=== PATIENT | male | born 2000 | race Caucasian/White ===

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

== ENCOUNTER 2025-02-15 18:08 | Emergency (ER) | payer MEDICAID, SELFPAY ==
[2025-02-15 18:13] VITALS: BP 128/78; PULSE 87; RESP 12; TEMP 37.1; O2SAT 99
--- NOTE | 2025-02-15 18:42 | ED.GENADUL_ITS ---
Discharge Plan Disposition Patient Disposition: Home Condition: Stable Discharge Details Clinical Impression: Right inguinal hernia Primary Care Provider: Amara Martinez ED Provider: Gerald Alford Home Meds and New Rx's Prescriptions: No Action diphenhydramine HCl 50 mg capsule 50 mg PO QHS Discharge Instructions Instructions: Groin hernias Additional Instructions: You were seen in the emergency department for the hernia of your right inguinal region. I did feel a small bulge, you have been having bowel movements consistently for weeks I do not suspect any incarcerated or strangulated intestine in this hernia. This is likely just abdominal wall fat that is squeezed its way through your inguinal canal. We do not have ultrasound at this time, I have placed an order for an outpatient ultrasound on Tuesday, please call them to schedule for that day, you will need to return to the emergency department for results, we may refer you to general surgery as well as sometimes these are fixed with mesh, you can often reduce these hernias on your own with gravity and gentle pressure over time but they are likely to recur. Please return immediately for any significant swelling in redness to the scrotum, significant increase of pain, lack of bowel movements. Referrals: [facility] [Provider Group] Amara Martinez [Primary Care Provider] - Discharge Data Discharge Date/Time-TO BE ENTERED AT DEPARTURE: 02/15/25 19:14 HPI General Date/Time Provider Initiated Documentation: 02/15/25 18:17 . HPI Narrative: 24 year-old male presents to ED today by POV/ambulating with a chief complaint of R tesitcular pain with onset yesterday. Quality described as dull ache with intermittent exacerbation, no radiation to redness, swelling, discharge, dysuria, fever, flank pain, abdominal pain. Severity is described as moderate to severe intermittently. Palliating factors include nothing specific attempted. Provoking factors include was doing hanging situps the other day. Events leading up to the incident/Associated Symptoms: Patient is not sexually active. Patient not anticoagulated. Related Data Home Medications ?Medication ?Instructions ?Recorded ?Confirmed diphenhydramine HCl 50 mg capsule 50 mg PO QHS 04/23/22 02/15/25 Allergies Allergy/AdvReac Type Severity Reaction Status Date / Time No Known Allergies Allergy Unverified 02/15/25 18:17 General Stated Complaint: Male Reproductive Problem MOISÉS: 2 Review of Systems All systems reviewed & are unremarkable except as noted in HPI and below Exam Narrative Exam Narrative: GENERAL APPEARANCE: Well-nourished, non-toxic, awake and alert, atraumatic, no acute distress. SKIN: Warm, pink, dry, intact, without rashes/lesions/ulcerations. HEAD: Normocephalic, atraumatic, normal hair distribution for gender/age. EYES: Normal conjunctiva, no exudates on lids/lashes. ENT: Nares patent, no circumoral cyanosis, no facial swelling NECK: Supple, trachea midline, painless cervical ROM. LUNGS/CHEST: Non-labored respirations, normal A/P diameter, symmetrical expansion, no chest wall deformity HEART (CV/PV): No peripheral edema, no JVD. ABDOMEN/: Soft, non-distended, no guarding, mild tenderness to the right testicle, no significant increase in pain with any rotation, no redness or diffuse swelling to scrotum, there is a palpable bulge to the right inguinal canal, likely fat-containing hernia. MSK: Normal ROM, no swelling/deformity to bilateral UEs or LEs, moving all extremities without weakness, no cyanosis, spine midline without tenderness, normal curvature. NEURO: Mental Status AAOx4 - alert to person, place, time, events No facial droop, no forehead involvement. Motor: No focal weakness - strength 5/5 in bilateral UEs and LEs, proximal and distal, symmetric. Sensory: sensation intact to light touch globally. Gait normal: patient ambulated without ataxia into ED room. PSYCH: euthymic, cooperative, pleasant, appropriate speech Course Vital Signs Vital signs: Vital Signs Temperature 37.1 C 02/15/25 18:13 Pulse 87 02/15/25 18:13 Respiratory Rate 12 02/15/25 18:13 Blood Pressure 128/78 02/15/25 18:13 Pulse Oximetry 99 02/15/25 18:13 Temperature 37.1 C 02/15/25 18:13 Temperature Source Oral 02/15/25 18:13 Pulse 87 02/15/25 18:13 Respiratory Rate 12 02/15/25 18:13 Blood Pressure 128/78 02/15/25 18:13 Blood Pressure Position Sitting 02/15/25 18:13 Pulse Oximetry 99 02/15/25 18:13 Oxygen Delivery Method Room Air 02/15/25 18:13 Oxygen Flow Rate 0 02/15/25 18:13 Pain Level 2 02/15/25 18:13 Medical Decision Making This dictation utilizes [id number] dictation software and may contain unedited grammatical errors. 24 year-old male presents to ED today by POV/ambulating with a chief complaint of R tesitcular pain with onset yesterday. Quality described as dull ache with intermittent exacerbation, no radiation to redness, swelling, discharge, dysuria, fever, flank pain, abdominal pain. Severity is described as moderate to severe intermittently. Palliating factors include nothing specific attempted. Provoking factors include was doing hanging situps the other day. Events leading up to the incident/Associated Symptoms: Patient is not sexually active. Patie nts' medical history: Noncontributory. Family and social history: Noncontributory. Pertinent exam findings / vital signs include mild tenderness to the right testicle, no significant increase in pain with any rotation, no redness or diffuse swelling to scrotum, there is a palpable bulge to the right inguinal canal, likely fat-containing hernia. Differential / pathologies of concern include hernia, appendix torsion, not Jelena's gangrene, not testicular torsion. Diagnostic studies of: - None, after hours for ultrasound counseled on return for ultrasound of inguinal. Interventions of: - Attempted to reduce with placing patient in Trendelenburg position and applying gentle pressure to the area, and effective. ED Course/Assessment/Plan: 24-year-old male presents with right testicular pain, has likely fat-containing inguinal hernia on the right side that was not reducible, counseled on need for return for ultrasound of the inguinal's, patient has been having regular bowel movements, pain is gone on since yesterday without extreme pain and tenderness to right testicle do not suspect any torsion pathology, counseled the patient on using gravity and applying gentle pressure to try and reduce this, he likely caused it while doing hanging sit ups, strict return criteria for any increasing redness, dysuria, flank pain, urinary retention, severe increase in pain, complete constipation with lack of passing gas. Findings not consistent with testicular torsion, renal colic, UTI, STI. Disposition of right inguinal hernia. Patient verbalized understanding of the plan and return to ED criteria and engaged in shared decision making. Medical Records Medical records reviewed: Yes I reviewed the patient's medical records. Quality:SDOH Health Related Social Needs: No Data to Display PFSH All Active Problems (Updated 02/15/25 @ 18:47 by DEANA Lowe) Right inguinal hernia (Acute) Normal hearing exam (Acute) Medical History (Updated 02/15/25 @ 18:47 by DEANA Lowe) Cleft palate and lip Asperger's disorder ADHD (attention deficit hyperactivity disorder) Tic disorder, unspecified Aggression Cannabis abuse Tobacco abuse Other insomnia Hearing loss Tinnitus Surgical History (Updated 04/23/22 @ 13:19 by Ifrah Donahue RN) H/O tooth extraction History of placement of ear tubes Social History Smoking/Tobacco Use Status: Current every day Tobacco Type: cigarettes Smoking risk assessment performed?: Yes Alcohol Intake: never Drug use: Never Substance use type: does not use Do you feel safe at home: Yes Do you feel safe in your relationship?: Yes
[2025-02-15 19:14] VITALS: BP 128/78; PULSE 87; RESP 12; TEMP 37.1; O2SAT 99
== END 2025-02-15 19:14 | disposition home or self-care (01) ==
PROVIDERS: Emergency Provider Physician Assistant; PCP Family Medicine
DX: K40.90 Unilateral inguinal hernia, without obstruction or gangrene, not specified as recurrent (principal)
CPT/HCPCS: 99283

== ENCOUNTER 2025-03-26 01:17 | Outpatient (CLI) | payer MEDICAID, SELFPAY ==
--- NOTE | 2025-03-26 11:00 | DI.US_ITS ---
Exam(s) US HERNIA EXAM: US HERNIA CLINICAL HISTORY: RT INGUINAL PAIN, R10.3, LOOKING FOR RT INGUINAL HERNIA. TECHNIQUE: Ultrasound was performed using standard protocol. COMPARISON: No exams were available for comparison FINDINGS: Dedicated ultrasound examination of the right inguinal region was performed looking for hernia. This study does not reveal an obvious right inguinal hernia. Also no abnormal mass nor fluid collect ion. There is a benign-appearing 7 x 5 mm lymph node in the right groin IMPRESSION: No evidence of obvious right inguinal hernia. DATA REPOSITORY:
== END 2025-03-26 01:37 ==
PROVIDERS: PCP Family Medicine; Visit Provider Surgery
DX: R10.31 Right lower quadrant pain (principal)
CPT/HCPCS: 76857